=== PATIENT | male | born 1995 | race Hispanic/Latino ===

== ENCOUNTER 2017-10-09 12:29 | Emergency (ER) | payer SELFPAY ==
[~2017-10-09] VITALS: Ht 175.3 cm; Wt 67.7 kg
[~2017-10-09 12:29] MED LIST: CLEOCIN300 MG PO; MOTRIN600 MG PO; NOHOMEMEDS
[2017-10-09] MEDS ORDERED: NORCO 5/3251 TABLET PO (14:20)
[2017-10-09] MEDS ORDERED: MOTRIN800 MG PO (14:20)
[2017-10-09] MEDS ORDERED: KEFLEX500 MG PO (14:20)
[2017-10-09 14:44] VITALS: BP 151/69
== END 2017-10-09 14:44 | disposition home or self-care (01) ==
LOC: EME 12:29
DX: S62.636B Displaced fracture of distal phalanx of right little finger, initial encounter for open fracture (principal); S67.196A Crushing injury of right little finger, initial encounter; W23.0XXA Caught, crushed, jammed, or pinched between moving objects, initial encounter; Y99.0 Civilian activity done for income or pay; Z23 Encounter for immunization; Z88.0 Allergy status to penicillin
CPT/HCPCS: 73140; 99281; 99284; S0020